=== PATIENT | female | born 1980 | race Caucasian/White ===

== ENCOUNTER 2016-12-16 14:44 | Emergency (ER) | payer BC ==
--- NOTE | 2016-12-16 15:10 | UC ---
UC General HPI - HPI Summary HPI Summary: Patient was ill for a few days with a temp of 101, she worked until the weekend , and then rested, work requesting she come in to be evaluated to make sure she is safe to return to work. was treated by the dentist for dental infection - History of Current Complaint Chief Complaint: UCGeneralIllness Stated Complaint: MOUTH COMPLAINT Time Seen by Provider: 12/16/16 15:00 Hx Obtained From: Patient Onset/Duration: Sudden Onset, Lasting Days Timing: Constant Onset Severity: Moderate Current Severity: Mild Pain Intensity: 2 Pain Location at: bottom jaw - Allergy/Home Medications Allergies/Adverse Reactions: Allergies Allergy/AdvReac Type Severity Reaction Status Date / Time No Known Allergies Allergy Verified 01/10/15 19:06 Home Medications: Home Medications Amoxicillin/Clavulanate TAB* [Augmentin TAB 875*] 12/16/16 [History] PMH/Surg Hx/FS Hx/Imm Hx Previously Healthy: Yes Endocrine History Of: Denies: Diabetes, Thyroid Disease Cardiovascular History Of: Denies: Cardiac Disorders, Hypertension Respiratory History Of: Denies: COPD, Asthma GI/ History Of: Denies: Ulcer - Surgical History Surgical History: Yes Surgery Procedure, Year, and Place: biopsy - Family History Known Family History: Positive: Respiratory Disease Negative: Hypertension - Social History Alcohol Use: Rare Alcohol Amount: beer Substance Use Type: None Smoking Status (MU): Never Smoked Tobacco - Immunization History Most Recent Tetanus Shot: believes it was last year Review of Systems Constitutional: Fatigue Skin: Negative Eyes: Negative ENT: Negative Respiratory: Negative Cardiovascular: Negative Gastrointestinal: Negative Genitourinary: Negative Motor: Negative Neurovascular: Negative Musculoskeletal: Negative Neurological: Negative Psychological: Negative All Other Systems Reviewed And Are Negative: Yes Physical Exam Triage Information Reviewed: Yes Appearance: Well-Appearing, No Pain Distress, Well-Nourished Vital Signs: Initial Vital Signs Temp 98.7 F 12/16/16 14:49 Pulse 87 12/16/16 14:49 Resp 18 12/16/16 14:49 BP 112/74 12/16/16 14:49 Pulse Ox 99 12/16/16 14:49 Vital Signs Reviewed: Yes Eye Exam: Normal Eyes: Positive: Conjunctiva Clear ENT: Positive: Hearing grossly normal, Pharynx normal, TM bulging - left Dental Exam: Normal Dental: Positive: Other: - gingiva inflammed Neck exam: Normal Neck: Positive: Supple, Nontender, No Lymphadenopathy Respiratory Exam: Normal Respiratory: Positive: Chest non-tender, Lungs clear, Normal breath sounds Cardiovascular Exam: Normal Cardiovascular: Positive: RRR, No Murmur, Pulses Normal Abdominal Exam: Normal Abdomen Description: Positive: Nontender, No Organomegaly, Soft Bowel Sounds: Positive: Present Musculoskeletal Exam: Normal Musculoskeletal: Positive: Strength Intact, ROM Intact, No Edema Neurological Exam: Normal Neurological: Positive: Alert, Muscle Tone Normal Psychological Exam: Normal Skin Exam: Normal Course/Dx - Course Course Of Treatment: hx obtained, exam performed, afebrile, is currently on medication from her dentist, does not appear to be an infection reisk to return to work. - Differential Dx - Multi-Symptom Provider Diagnoses: gingivitis. fatique Discharge - Discharge Plan Condition: Stable Disposition: HOME Forms: *Work Release Additional Instructions: Continue taking the medication your dentist has prescribed. Follow up with any worsening symptoms.
[2016-12-16 16:00] VITALS: BP 112/74
== END 2016-12-16 15:17 | disposition home or self-care (01) ==
LOC: UCEAST 14:44
DX: K05.10 Chronic gingivitis, plaque induced (principal); R53.83 Other fatigue
CPT/HCPCS: 99211; G0463

== ENCOUNTER 2017-10-08 17:10 | Emergency (ER) | payer BC ==
[2017-10-08 17:25] VITALS: BP 110/60
--- NOTE | 2017-10-08 17:38 | UC ---
Lower Extremity/Ankle HPI - HPI Summary HPI Summary: 37 yo female twisted her right ankle 4 days ago missed work able to bear wt with a limp - History of Current Complaint Chief Complaint: UCLowerExtremity Stated Complaint: ANKLE INJURY Time Seen by Provider: 10/08/17 17:27 Hx Obtained From: Patient Hx Last Menstrual Period: 09/30/17 Onset/Duration: Sudden Onset, Lasting Days Severity Initially: Moderate Severity Currently: Moderate Pain Intensity: 4 Pain Scale Used: 0-10 Numeric Aggravating Factor(s): Standing, Ambulation Alleviating Factor(s): Rest, Elevation Able to Bear Weight: Yes - Allergies/Home Medications Allergies/Adverse Reactions: Allergies Allergy/AdvReac Type Severity Reaction Status Date / Time No Known Allergies Allergy Verified 10/08/17 17:25 PMH/Surg Hx/FS Hx/Imm Hx Previously Healthy: Yes - Surgical History Surgical History: Yes Surgery Procedure, Year, and Place: biopsy - Family History Known Family History: Positive: Respiratory Disease Negative: Hypertension - Social History Alcohol Use: Occasionally Alcohol Amount: beer Substance Use Type: None Smoking Status (MU): Never Smoked Tobacco - Immunization History Most Recent Tetanus Shot: believes it was last year Review of Systems Constitutional: Negative Skin: Bruising Eyes: Negative ENT: Negative Respiratory: Negative Cardiovascular: Negative Gastrointestinal: Negative Genitourinary: Negative Motor: Negative Neurovascular: Negative Musculoskeletal: Arthralgia Neurological: Negative Psychological: Negative Is Patient Immunocompromised?: No All Other Systems Reviewed And Are Negative: Yes Physical Exam Triage Information Reviewed: Yes Appearance: Well-Appearing, No Pain Distress, Well-Nourished Vital Signs: Initial Vital Signs Temp 98.8 F 10/08/17 17:20 Pulse 88 10/08/17 17:20 Resp 18 10/08/17 17:20 BP 110/60 10/08/17 17:20 Pulse Ox 100 10/08/17 17:20 Eyes: Positive: Conjunctiva Clear ENT: Positive: Hearing grossly normal. Negative: Nasal congestion, Nasal drainage, Trismus, Muffled voice, Hoarse voice Neck: Positive: Supple, Nontender Respiratory: Positive: Lungs clear, Normal breath sounds, No respiratory distress, No accessory muscle use Cardiovascular: Positive: RRR, No Murmur Musculoskeletal: Positive: Other: - see image Neurological: Positive: Alert Psychological Exam: Normal Diagnostics - Radiology No standard instances Xray Interpretation: No Acute Changes Radiology Interpretation Completed By: Radiologist Lower Extremity Course/Dx - Differential Dx/Diagnosis Provider Diagnoses: right ankle sprain Discharge - Discharge Plan Condition: Stable Disposition: HOME Patient Education Materials: Ankle Sprain (ED), RICE Therapy (ED) Forms: *Work Release Referrals: No Primary Care Phys,NOPCP [Primary Care Provider] - Additional Instructions: recheck this Thursday if you don't think you can return to work on Thursday Images Feet (Multiple View): 1 - tender swollen 2 - swollen/ecchymotic
--- NOTE | 2017-10-08 18:07 | RAD ---
INDICATION: Right ankle injury. TECHNIQUE: 3 views of the right ankle were obtained. FINDINGS: The bones are in normal alignment. No fracture is seen. Joint spaces appear maintained. IMPRESSION: NO EVIDENCE FOR FRACTURE.
== END 2017-10-08 18:31 | disposition home or self-care (01) ==
LOC: UCEAST 17:10
DX: S93.401A Sprain of unspecified ligament of right ankle, initial encounter (principal); X50.9XXA Other and unspecified overexertion or strenuous movements or postures, initial encounter; Y92.9 Unspecified place or not applicable
CPT/HCPCS: 99212; G0463

== ENCOUNTER 2017-10-11 15:26 | Emergency (ER) | payer BC ==
[2017-10-11 16:41] VITALS: BP 111/69
--- NOTE | 2017-10-11 17:05 | UC ---
Lower Extremity/Ankle HPI - HPI Summary HPI Summary: seen a couple of days ago ---had a twisting injury to right foot / ankle has continued pain and feels that she is unable to do her job at [employer] this week do to the pain - History of Current Complaint Chief Complaint: UCLowerExtremity Stated Complaint: ANKLE INJURY RECHECK Time Seen by Provider: 10/11/17 16:52 Hx Obtained From: Patient Hx Last Menstrual Period: 09/30/17 ?: No Onset/Duration: Sudden Onset, Lasting Days, Still Present Severity Initially: Moderate Severity Currently: Moderate Pain Intensity: 6 Pain Scale Used: 0-10 Numeric Aggravating Factor(s): Standing, Ambulation Able to Bear Weight: Yes - with pain - Allergies/Home Medications Allergies/Adverse Reactions: Allergies Allergy/AdvReac Type Severity Reaction Status Date / Time No Known Allergies Allergy Verified 10/11/17 16:33 PMH/Surg Hx/FS Hx/Imm Hx Previously Healthy: Yes - Surgical History Surgical History: Yes Surgery Procedure, Year, and Place: biopsy - Family History Known Family History: Positive: Respiratory Disease Negative: Hypertension - Social History Occupation: Employed Full-time Lives: With Family Alcohol Use: Occasionally Alcohol Amount: beer Substance Use Type: None Smoking Status (MU): Never Smoked Tobacco - Immunization History Most Recent Tetanus Shot: believes it was last year Review of Systems Constitutional: Negative Skin: Negative Eyes: Negative ENT: Negative Respiratory: Negative Cardiovascular: Negative Gastrointestinal: Negative Genitourinary: Negative Motor: Negative Neurovascular: Negative Musculoskeletal: Arthralgia - lateral right ankle & top of lateral side of right foot Neurological: Negative Psychological: Negative Is Patient Immunocompromised?: No All Other Systems Reviewed And Are Negative: Yes Physical Exam Triage Information Reviewed: Yes Appearance: Well-Appearing, Well-Nourished, Pain Distress - mild Vital Signs: Initial Vital Signs Temp 99.5 F 10/11/17 16:33 Pulse 106 10/11/17 16:33 Resp 16 10/11/17 16:33 BP 111/69 10/11/17 16:33 Pulse Ox 98 10/11/17 16:33 Vital Signs Reviewed: Yes Eye Exam: Normal Eyes: Positive: Conjunctiva Clear ENT Exam: Normal ENT: Positive: Normal ENT inspection, Hearing grossly normal. Negative: Nasal congestion, Trismus, Muffled voice, Hoarse voice Dental Exam: Normal Neck exam: Normal Neck: Positive: Supple, Nontender Respiratory Exam: Normal Respiratory: Positive: Chest non-tender, No respiratory distress, No accessory muscle use Cardiovascular Exam: Normal Cardiovascular: Positive: RRR, Pulses Normal, Brisk Capillary Refill Musculoskeletal Exam: Normal Musculoskeletal: Positive: Strength Intact, ROM Intact, No Edema Neurological Exam: Normal Neurological: Positive: Alert, Muscle Tone Normal Psychological Exam: Normal Psychological: Positive: Normal Response To Family Skin Exam: Normal Lower Extremity Course/Dx - Course Course Of Treatment: cam boot rice ibuprofen follow with ortho this week - Differential Dx/Diagnosis Provider Diagnoses: right lateral ankle sprain foot contusion Discharge - Discharge Plan Condition: Stable Disposition: HOME Patient Education Materials: Foot Sprain (ED), RICE Therapy (ED) Forms: *Work Release Referrals: [facility] [Outside] Chucho Carias MD [Medical Doctor] - 3 Days ()
== END 2017-10-11 17:22 | disposition home or self-care (01) ==
LOC: UCEAST 15:26
DX: S90.31XD Contusion of right foot, subsequent encounter (principal); S93.401D Sprain of unspecified ligament of right ankle, subsequent encounter; X50.1XXD Overexertion from prolonged static or awkward postures, subsequent encounter; Y92.9 Unspecified place or not applicable
CPT/HCPCS: 99212; G0463

== ENCOUNTER → 2018-05-26 16:52 | Emergency (ER) | payer SELFPAY ==
[~2018-05-26 16:52] MED LIST: NS 0.9% 1000 ML* 1,000 ML IV ONE
--- NOTE | 2018-05-26 17:59 | RAD ---
INDICATION: Seizures COMPARISON: None TECHNIQUE: Noncontrast axial source images were acquired from the skull base to the vertex. FINDINGS: Ventricles/sulci: The ventricles and cisterns are normal in size and configuration for age. Brain parenchyma: There is no focal parenchymal finding, evidence of intracranial mass, or intracranial mass effect. Intracranial hemorrhage:None. Extra-axial spaces: There are no abnormal extra axial fluid collections or evidence of extra-axial mass. Calvarium: There is no calvarial fracture or other calvarial abnormality. Scalp: There is no evidence of scalp or extracalvarial soft tissue abnormality. Paranasal sinuses/mastoid: The paranasal sinuses and mastoid air cells are clear. Other: None. IMPRESSION: NEGATIVE NONCONTRAST CT EXAMINATION
--- NOTE | 2018-05-26 18:13 | RAD ---
INDICATION: Seizure COMPARISON: None TECHNIQUE: An AP portable view obtained at 1754 hours is submitted. FINDINGS: Bones/Soft Tissues: There are no acute bony findings. Cardiomediastinal: The cardiomediastinal silhouette is normal. Lungs: There are no infiltrates. Pleura: There are no pleural effusions. Other: None IMPRESSION: NO ACTIVE DISEASE.
[2018-05-26 18:23] LABS: ABS Basophils 0.1 10^3/ul (0-0.2); ABS Eosinophils 0 10^3/ul (0-0.6); ABS Lymphocytes 0.3 10^3/ul (1.0-4.8); ABS Monocytes 0.3 10^3/ul (0-0.8); ABS Neutrophils 7.8 10^3/ul (1.5-7.7); ABS Nucleated RBC 0 10^3/ul; Eosinophil % 0.3 % (0-6); Hematocrit 28 % (35-47); Hemoglobin 8.7 g/dl (12.0-16.0); Lymphocyte % 3.5 % (25-47); Mean Corpuscular HGB Conc 32 g/dl (31-36); Mean Corpuscular Hemoglobin 25 pg (27-31); Mean Corpuscular Volume 79 fL (80-97); Mean Platelet Volume 7.1 um3 (7.4-10.4); Nucleated Red Blood Cells % 0; Platelet Count 349 10^3/ul (150-450); Red Blood Count 3.47 10^6/ul (4.00-5.40); Red Cell Distribution Width 16 % (10.5-15); White Blood Count 8.5 10^3/ul (3.5-10.8)
[2018-05-26 18:42] LABS: EGFR Non-African American 68.8 (>60)
[2018-05-26 18:55] LABS: INR 0.91 (0.77-1.02)
--- NOTE | 2018-05-26 19:04 | ED ---
Osito Newman Tiffany, scribed for Flo Simmons on 05/26/18 at 1738 . Neurological HPI - HPI Summary HPI Summary: 38 year old F BIBDerrick to [facility] complains of one witnessed seizure at court 30 minutes ago that has since resolved. Symptoms aggravated by nothing. Symptoms alleviated by nothing. Patient reports insomnia last night and not feeling well today. She does not remember the seizure episode. No hx seizure. Fhx epilepsy. - History of Current Complaint Chief Complaint: EDSeizure Stated Complaint: SEIZURES Time Seen by Provider: 05/26/18 17:25 Hx Obtained From: Patient Hx Last Menstrual Period: 09/30/17 Onset/Duration: Started minutes ago - 30 minutes, Resolved Number of Seizures: 1 Aggravating: Nothing Alleviating: Nothing - Allergy/Home Medications Allergies/Adverse Reactions: Allergies Allergy/AdvReac Type Severity Reaction Status Date / Time No Known Allergies Allergy Verified 10/11/17 16:33 PMH/Surg Hx/FS Hx/Imm Hx Previously Healthy: No Endocrine/Hematology History: Denies: Hx Diabetes, Hx Thyroid Disease Cardiovascular History: Denies: Hx Hypertension Respiratory History: Denies: Hx Asthma, Hx Chronic Obstructive Pulmonary Disease (COPD) GI History: Denies: Hx Ulcer Psychiatric History: Reports: Hx Attention Deficit Hyperactivity Disorder - Cancer History Cancer Type, Location and Year: thyroid biopsy (benign) - Surgical History Surgery Procedure, Year, and Place: biopsy Infectious Disease History: No Infectious Disease History: Reports: Hx of Known/Suspected MRSA Denies: Hx Clostridium Difficile, Hx Hepatitis, Hx Human Immunodeficiency Virus (HIV), Hx Shingles, Hx Tuberculosis, Hx Known/Suspected VRE, Hx Known/ Suspected VRSA, History Other Infectious Disease, Traveled Outside the [place] in Last 30 Days - Family History Known Family History: Positive: Respiratory Disease, Other - brother has epilepsy Negative: Hypertension - Social History Alcohol Use: Occasionally Alcohol Amount: beer Hx Substance Use: No Substance Use Type: Reports: None Hx Tobacco Use: No Smoking Status (MU): Never Smoked Tobacco Review of Systems Positive: Other - not feeling well today Neurological: Other - one witnessed seizure that has since resolved, does not remember this episode Positive: Other - insomnia last night All Other Systems Reviewed And Are Negative: Yes Physical Exam - Summary Physical Exam Summary: Appearance: Well appearing, no pain distress Skin: warm, dry, reflects adequate perfusion Head/face: normal Eyes: EOMI, SON ENT: normal Neck: supple, non-tender Respiratory: CTA, breath sounds present Cardiovascular: RRR, pulses symmetrical Abdomen: non-tender, soft Bowel: present Musculoskeletal: normal, strength/ROM intact Neuro: normal, sensory motor intact, A&Ox3 Triage Information Reviewed: Yes Vital Signs On Initial Exam: Initial Vitals Temp Pulse Resp BP Pulse Ox 97.9 F 109 18 124/81 100 05/26/18 16:57 05/26/18 16:57 05/26/18 16:57 05/26/18 16:57 05/26/18 16:57 Vital Signs Reviewed: Yes Diagnostics - Vital Signs Vital Signs Temp Pulse Resp BP Pulse Ox 05/26/18 16:57 97.9 F 109 18 124/81 100 - Laboratory Lab Results: Lab Results 05/26/18 05/26/18 05/26/18 Range/Units 18:13 18:14 18:14 WBC 8.5 (3.5-10.8) 10^3/ul RBC 3.47 L (4.00-5.40) 10^6/ul Hgb 8.7 L (12.0-16.0) g/dl Hct 28 L (35-47) % MCV 79 L (80-97) fL MCH 25 L (27-31) pg MCHC 32 (31-36) g/dl RDW 16 H (10.5-15) % Plt Count 349 (150-450) 10^3/ul MPV 7.1 L (7.4-10.4) um3 Neut % (Auto) 92.2 H (38-83) % Lymph % (Auto) 3.5 L (25-47) % Stevens % (Auto) 3.2 (0-7) % Eos % (Auto) 0.3 (0-6) % Baso % (Auto) 0.8 (0-2) % Absolute Neuts (auto) 7.8 H (1.5-7.7) 10^3/ul Absolute Lymphs (auto) 0.3 L (1.0-4.8) 10^3/ul Absolute Monos (auto) 0.3 (0-0.8) 10^3/ul Absolute Eos (auto) 0 (0-0.6) 10^3/ul Absolute Basos (auto) 0.1 (0-0.2) 10^3/ul Absolute Nucleated RBC 0 10^3/ul Nucleated RBC % 0 INR (Anticoag Therapy) 0.91 (0.77-1.02) APTT 24.1 L (26.0-36.3) seconds Sodium 136 (135-145) mmol/L Potassium 3.5 (3.5-5.0) mmol/L Chloride 105 (101-111) mmol/L Carbon Dioxide 21 L (22-32) mmol/L Anion Gap 10 (2-11) mmol/L BUN 10 (6-24) mg/dL Creatinine 0.91 (0.51-0.95) mg/dL Est GFR ( Amer) 83.3 (>60) Est GFR (Non-Af Amer) 68.8 (>60) BUN/Creatinine Ratio 11.0 (8-20) Glucose 93 (70-100) mg/dL Calcium 9.2 (8.6-10.3) mg/dL Magnesium 2.2 (1.9-2.7) mg/dL Total Bilirubin 0.30 (0.2-1.0) mg/dL AST 21 (13-39) U/L ALT 12 (7-52) U/L Alkaline Phosphatase 44 (34-104) U/L Total Creatine Kinase 85 (10-223) U/L Troponin I 0.00 (<0.04) ng/mL Total Protein 7.6 (6.4-8.9) g/dL Albumin 4.3 (3.2-5.2) g/dL Globulin 3.3 (2-4) g/dL Albumin/Globulin Ratio 1.3 (1-3) Beta HCG, Quant < 0.60 mIU/mL Serum Alcohol Pending Result Diagrams: 05/26/18 18:14 05/26/18 18:14 Lab Statement: Any lab studies that have been ordered have been reviewed, and results considered in the medical decision making process. - Radiology CXR Radiology Interpretation Completed By: Radiologist - No active disease. ED physician has reviewed this report. - CT Brain CT Interpretation Completed By: Radiologist - NEGATIVE NONCONTRAST CT EXAMINATION. ED physician has reviewed this report. - EKG 17:37 Cardiac Rate: Tachycardia - 106 BPM EKG Rhythm: Sinus Tachycardia EKG Interpretation: No acute changes Re-Evaluation - Re-Evaluation First Eval Re-Evaluation Time: 18:24 Comment: Discussed consultation with Dr. Iverson. She knows that she cannot drive until follow up from neurology. Course/Dx - Course Course Of Treatment: 38 year old F BIBDerrick to [facility] complains of one witnessed seizure at court 30 minutes ago that has since resolved. Bloodwork/UA/imaging obtained. All were negative. Patient will be discharged leobardo with follow up from neurology. She was advised not to drive until follow up. - Differential Dx Differential Diagnoses Neuro: Positive: Seizure Disorder, Vasovagal Reaction - Diagnoses Provider Diagnoses: New onset seizure, Anemia - Physician Notifications Discussed Care Of Patient With: Tyrell Iverson Time Discussed With Above Provider: 18:20 Instructed by Provider To: Other - Dr. Iverson, neurology, advises that patient can be discharged home with follow-up from neurology if labs and imaging are negative. He says patient should get an out-patient EEG and advises that patient should not drive until she follows up with neurology. Discharge - Sign-Out/Discharge Documenting (check all that apply): Discharge/Admit/Transfer - Discharge - Discharge Plan Condition: Stable Disposition: HOME Prescriptions: Ferrous Sulfate [Ferosul] 325 mg PO BID #60 tablet Patient Education Materials: New-Onset Seizure in Adults (ED) Forms: *Work Release Referrals: No Primary Care Phys,NOPCP [Primary Care Provider] - Dahlia Villalpando MD [Medical Doctor] - As Soon As Possible Additional Instructions: Follow up with Dr. Villalpando, neurology, as soon as possible. DO NOT DRIVE UNTIL YOU HAVE FOLLOWED UP. Return to the Emergency Department for new or worsening symptoms. - Billing Disposition and Condition Condition: STABLE Disposition: Home The documentation as recorded by the Osito mcwilliams Tiffany accurately reflects the service I personally performed and the decisions made by , Flo Simmons.
[2018-05-26 21:32] VITALS: BP 135/80
== END | disposition home or self-care (01) ==
LOC: ED 16:52
DX: D64.9 Anemia, unspecified (principal); R56.9 Unspecified convulsions; G47.00 Insomnia, unspecified; Z82.0 Family history of epilepsy and other diseases of the nervous system
CPT/HCPCS: 36415; 70450; 71045; 80053; 80320; 82550; 83735; 84484; 84702; 85025; 85610; 85730; 93005; 99283; G0480

== ENCOUNTER 2019-03-14 16:19 | Emergency (ER) | payer SELFPAY ==
--- NOTE | 2019-03-14 17:07 | ED ---
Substance Abuse/Use - HPI Summary HPI Summary: Pt is a 39 y/o female brought in by police who presents to the ED c/o intoxication. She is intoxicated by alcohol and got into an argument with her at home. Pt has been for 3 weeks and today he threatened to divorce her. As per nurses note, she states I guess I said I wanted to hurt myself. Pt denies any current SI or HI. She repeats that she doesnt know why shes here. Pt reports that she hasnt eaten in the past 2 days. She was drinking beer today, and denies any drug use or smoking. PMHx ADD and depression. Pt is prescribed Adderall and Lexapro but doesnt take her medications. - History Of Current Complaint Chief Complaint: EDMentalHealth Stated Complaint: 941 MHE PER POLICE Time Seen by Provider: 03/14/19 16:38 Hx Obtained From: Patient Hx Last Menstrual Period: 09/30/17 Ingestion History: Type/Name Of Drug - Alcohol Overdose Characteristics: Oral Aggravating Factor(s): Recent Stress - fight with Alleviating Factor(s): Nothing - Allergies/Home Medications Allergies/Adverse Reactions: Allergies Allergy/AdvReac Type Severity Reaction Status Date / Time No Known Allergies Allergy Verified 03/14/19 17:30 Home Medications: Home Medications NK [No Home Medications Reported] 03/14/19 [History Confirmed 03/14/19] PMH/Surg Hx/FS Hx/Imm Hx Endocrine/Hematology History: Denies: Hx Diabetes, Hx Thyroid Disease Cardiovascular History: Denies: Hx Hypertension Respiratory History: Denies: Hx Asthma, Hx Chronic Obstructive Pulmonary Disease (COPD) GI History: Denies: Hx Ulcer Psychiatric History: Reports: Hx Attention Deficit Hyperactivity Disorder, Hx Depression - Cancer History Cancer Type, Location and Year: thyroid biopsy (benign) - Surgical History Surgery Procedure, Year, and Place: biopsy Infectious Disease History: No Infectious Disease History: Reports: Hx of Known/Suspected MRSA Denies: Hx Clostridium Difficile, Hx Hepatitis, Hx Human Immunodeficiency Virus (HIV), Hx Shingles, Hx Tuberculosis, Hx Known/Suspected VRE, Hx Known/ Suspected VRSA, History Other Infectious Disease, Traveled Outside the [place] in Last 30 Days - Family History Known Family History: Positive: Respiratory Disease, Other - brother has epilepsy Negative: Hypertension - Social History Alcohol Use: Occasionally Alcohol Amount: beer Hx Substance Use: No Substance Use Type: Reports: None Hx Tobacco Use: No Smoking Status (MU): Never Smoked Tobacco Review of Systems Positive: Other - intoxicated Negative: Other - SI, HI All Other Systems Reviewed And Are Negative: Yes Physical Exam - Summary Physical Exam Summary: Appearance: well appearing, no pain distress, smells of alcohol Skin: warm, dry, reflects adequate perfusion Head/face: normal Eyes: EOMI, SON ENT: mucous membranes moist Neck: supple, non-tender Respiratory: CTA, breath sounds present Cardiovascular: RRR, pulses symmetrical Abdomen: non-tender, soft Bowel Sounds: present Musculoskeletal: normal, strength/ROM intact Neuro: normal, sensory motor intact, A&Ox3 Psych: mildly flattened affect Triage Information Reviewed: Yes Vital Signs On Initial Exam: Initial Vitals Temp Pulse Resp BP Pulse Ox 98.6 F 101 18 131/91 98 03/14/19 16:28 03/14/19 16:28 03/14/19 16:28 03/14/19 16:28 03/14/19 16:28 Vital Signs Reviewed: Yes Diagnostics - Vital Signs Vital Signs Temp Pulse Resp BP Pulse Ox 03/14/19 16:28 98.6 F 101 18 131/91 98 - Laboratory Result Diagrams: 03/14/19 17:02 03/14/19 17:02 Lab Statement: Any lab studies that have been ordered have been reviewed, and results considered in the medical decision making process. Course/Dx - Course Course Of Treatment: Nurse's notes reviewed. Patient intoxicated on beer on her birthday. She had made a suicidal statement at home but has no persistent suicidal ideation. She'll be observed until sober and reevaluated for need for mental health. She is signed out to oncoming ER physician. - Diagnoses Provider Diagnoses: Alcohol intoxication, Substance induced mood disorder Discharge - Sign-Out/Discharge Documenting (check all that apply): Sign-Out Patient Signing out patient TO: Tiffany Ang Patient Received Moderate/Deep Sedation with Procedure: No - Discharge Plan Referrals: No Primary Care Phys,NOPCP [Primary Care Provider] - - Attestation Statements Document Initiated by Scribe: Yes Documenting Scribe: Shala Reynolds Provider For Whom Scribe is Documenting (Include Credential): Albert Vidales MD Scribe Attestation: Shala Newman, scribed for Albert Vidales MD on 03/14/19 at 1833. Scribe Documentation Reviewed: Yes Provider Attestation: The documentation as recorded by the scribe, Shala Reynolds accurately reflects the service I personally performed and the decisions made by me, Albert Vidales MD Status of Scribe Document: Viewed
[2019-03-14 17:12] LABS: ABS Basophils 0 10^3/ul (0-0.2); ABS Eosinophils 0 10^3/ul (0-0.6); ABS Lymphocytes 0.8 10^3/ul (1.0-4.8); ABS Monocytes 0.2 10^3/ul (0-0.8); ABS Neutrophils 2.1 10^3/ul (1.5-7.7); ABS Nucleated RBC 0 10^3/ul; Eosinophil % 1.4 %; Hematocrit 38 % (33-41); Hemoglobin 12.6 g/dL (12.0-16.0); Lymphocyte % 24.7 %; Mean Corpuscular HGB Conc 33 g/dL (31-36); Mean Corpuscular Hemoglobin 28 pg (27-31); Mean Corpuscular Volume 84 fL (80-97); Mean Platelet Volume 6.8 fL (7.4-10.4); Nucleated Red Blood Cells % 0; Platelet Count 278 10^3/uL (150-450); Red Blood Count 4.54 10^6 /uL (3.70-4.87); Red Cell Distribution Width 17 % (10.5-15); White Blood Count 3.3 10^3/uL (3.5-10.8)
[2019-03-14 17:26] LABS: ALT 15 U/L (7-52); AST 27 U/L (13-39); Albumin 4.5 g/dL (3.2-5.2); Albumin/Globulin Ratio 1.4 (1-3); Alkaline Phosphatase 58 U/L (34-104); Anion Gap 7 mmol/L (2-11); BUN/Creatinine Ratio 10.6 (8-20); Blood Urea Nitrogen 10 mg/dL (6-24); CO2 Carbon Dioxide 23 mmol/L (22-32); Calcium 8.7 mg/dL (8.6-10.3); Chloride 110 mmol/L (101-111); EGFR African American 79.8 (>60); Globulin 3.2 g/dL (2-4); Glucose 93 mg/dL (70-100); Potassium 3.8 mmol/L (3.5-5.0); Sodium 140 mmol/L (135-145); Total Protein 7.7 g/dL (6.4-8.9)
[2019-03-14 17:30] LABS: Acetaminophen < 15 mcg/mL; Alcohol 349 mg/dL (<10); Salicylate < 2.50 mg/dL (<30)
[2019-03-14 17:31] LABS: HCG Pregnancy < 0.60 mIU/mL
[2019-03-14 17:38] LABS: Urine Appearance Clear; Urine Bacteria Absent (Absent); Urine Bilirubin Negative (Negative); Urine Blood 2+ (Negative); Urine Color Colorless; Urine Glucose Negative (Negative); Urine Ketones Negative (Negative); Urine Nitrite Negative (Negative); Urine Protein Negative (Negative); Urine Red Blood Cell Trace(0-2/hpf) (Absent); Urine Specific Gravity 1.002 (1.010-1.030); Urine Urobilinogen Negative (Negative); Urine White Blood Cell Absent (Absent)
[2019-03-14 17:39] LABS: Barbiturates Urine Screen None Detected (None Detect); Benzodiazepine Urine Screen None Detected (None Detect); Urine Cannabinoids Screen None Detected (None Detect)
--- NOTE | 2019-03-14 19:04 | ED ---
Progress - Progress Note Progress Note: Patient is received as a sign out from Dr. Vidales to Dr. Ang at 1900 03/14/19 shift change pending sobriety of patient, possible MHE. 2145 - Patient has sobered up at this point. Patient denies HI/SI at this time, she states that she feels safe to go back home with her . Patient will be discharged to home. Re-Evaluation - Re-Evaluation First Eval Re-Evaluation Time: 21:46 Change: Improved Comment: 2145 - Patient has sobered up at this point. Patient denies HI/SI at this time, she states that she feels safe to go back home with her . Patient will be discharged to home. Course/Dx - Course Course Of Treatment: Patient is received as a sign out from Dr. Vidales to Dr. Ang at 1900 03/14/19 shift change pending sobriety of patient, possible MHE. 2145 - Patient has sobered up at this point. Patient denies HI/SI at this time, she states that she feels safe to go back home with her . Patient will be discharged to home. - Diagnoses Provider Diagnoses: Alcohol intoxication Discharge - Sign-Out/Discharge Documenting (check all that apply): Patient Departure - discharge Patient Received Moderate/Deep Sedation with Procedure: No - Discharge Plan Condition: Stable Disposition: HOME Patient Education Materials: Alcohol Intoxication (ED) Referrals: [facility] [Outside] - 3 Days Additional Instructions: PLEASE RETURN TO THE EMERGENCY DEPARTMENT IMMEDIATELY FOR WORSENING OR CONCERNING SYMPTOMS. FOLLOW UP WITH YOUR PRIMARY CARE PHYSICIAN WITHIN THREE DAYS. - Attestation Statements Document Initiated by Scribe: Yes Documenting Scribe: CL ELDRIDGE Provider For Whom Cece is Documenting (Include Credential): GRACIA ANG MD Scribe Attestation: CL Newman, scribed for GRACIA ANG MD on 03/14/19 at 2149. Status of Scribe Document: Ready
[2019-03-14] MEDS ORDERED: Acetaminophen TAB* 325 MG PO ONE (21:45)
[2019-03-14 22:29] VITALS: BP 125/79
== END 2019-03-14 22:20 | disposition home or self-care (01) ==
LOC: ED 16:19
DX: F10.129 Alcohol abuse with intoxication, unspecified (principal); F98.8 Other specified behavioral and emotional disorders with onset usually occurring in childhood and adolescence; F19.94 Other psychoactive substance use, unspecified with psychoactive substance-induced mood disorder; F32.9 Major depressive disorder, single episode, unspecified; Z86.14 Personal history of Methicillin resistant Staphylococcus aureus infection; Z91.19 Patient's noncompliance with other medical treatment and regimen
CPT/HCPCS: 36415; 80053; 80307; 80320; 80329; 81003; 81015; 84702; 85025; 99285; G0480

== ENCOUNTER 2021-07-18 21:27 | Inpatient (IN) ==
[2021-07-19 06:22] LABS: ABS Lymphocytes 0.7 10^3/ul (1.0-4.8); ABS Monocytes 0.8 10^3/ul (0-0.8); ABS Neutrophils 7.5 10^3/ul (1.5-7.7); Eosinophil % 0.1 %; Hematocrit 43 % (35-47); Hemoglobin 14.7 g/dL (12.0-16.0); Lymphocyte % 7.7 %; Mean Corpuscular HGB Conc 34 g/dL (31-36); Mean Corpuscular Hemoglobin 33 pg (27-31); Mean Corpuscular Volume 96 fL (80-97); Platelet Count 351 10^3/uL (150-450); Red Blood Count 4.51 10^6 /uL (3.70-4.87); Red Cell Distribution Width 18 % (10-15)
[2021-07-19 06:38] LABS: ALT 33 U/L (7-52); AST 28 U/L (13-39); Albumin 4.5 g/dL (3.2-5.2); Albumin/Globulin Ratio 1.3 (1-3); Alkaline Phosphatase 112 U/L (35-149); Anion Gap 9 mmol/L (2-11); Blood Urea Nitrogen 11 mg/dL (6-24); CO2 Carbon Dioxide 24 mmol/L (22-32); Calcium 9.6 mg/dL (8.6-10.3); Chloride 103 mmol/L (101-111); EGFR African American 69.5 (>60); EGFR Non-African American 57.5 (>60); Globulin 3.5 g/dL (2-4); Glucose 127 mg/dL (70-100); Potassium 3.4 mmol/L (3.5-5.0); Sodium 136 mmol/L (135-145)
[2021-07-19 06:49] LABS: Acetaminophen < 15 mcg/mL; Alcohol, S < 13 mg/dL (<13); Salicylate < 2.50 mg/dL (<30)
[2021-07-19 07:04] LABS: TSH Ultra Thyroid Stim Horm 6.78 mcIU/mL (0.34-5.60)
[2021-07-19] MEDS ORDERED: Al Hydrox/Mg Hydrox/Simet LIQ 30 ML UDC PO PRN (11:47)
[2021-07-20] MEDS: Vitamin THERAPEUTIC TAB PO SCH (09:33)
[2021-07-21 08:36] LABS: HDL Cholesterol 56.1 mg/dL
[2021-07-21] MEDS: Vitamin THERAPEUTIC TAB PO SCH (09:10)
[2021-07-22] MEDS: Vitamin THERAPEUTIC TAB PO SCH (10:01)
[2021-07-23] MEDS: Vitamin THERAPEUTIC TAB PO SCH (07:41)
[2021-07-23 08:13] VITALS: BP 134/84
== END 2021-07-23 14:00 | disposition home or self-care (01) | DRG 751 ==
LOC: ED 21:27 → BSU 07-19 11:56
PROVIDERS: ADMIT Psychiatry & Neurology Psychiatry; ATTEND Psychiatry & Neurology Psychiatry

== ENCOUNTER 2022-08-06 18:53 | Inpatient (IN) ==
[2022-08-06] MEDS ORDERED: Lactated Ringers 1000 ml BAG 1,000 ML IV ONE ×2 (19:14→21:28)
[2022-08-06 20:27] LABS: ABS Lymphocytes 0.8 10^3/ul (1.0-4.8); ABS Monocytes 1.3 10^3/ul (0-0.8); ABS Neutrophils 12.2 10^3/ul (1.5-7.7); Hematocrit 51 % (35-47); Hemoglobin 17.1 g/dL (12.0-16.0); Lymphocyte % 5.8 %; Mean Corpuscular HGB Conc 34 g/dL (31-36); Mean Corpuscular Hemoglobin 32 pg (27-31); Mean Corpuscular Volume 96 fL (80-97); Mean Platelet Volume 7.9 fL (7.4-10.4); Platelet Count 373 10^3/uL (150-450); Red Blood Count 5.32 10^6 /uL (3.70-4.87); Red Cell Distribution Width 14 % (10-15); White Blood Count 14.4 10^3/uL (3.5-10.8)
[2022-08-06 21:16] LABS: ALT 33 U/L (7-52); AST 33 U/L (13-39); Albumin 5.1 g/dL (3.2-5.2); Albumin/Globulin Ratio 1.5 (1-3); Alcohol, S < 13 mg/dL (<13); Alkaline Phosphatase 102 U/L (35-149); Anion Gap 12 mmol/L (2-11); Blood Urea Nitrogen 11 mg/dL (6-24); CO2 Carbon Dioxide 17 mmol/L (22-32); Calcium 11.1 mg/dL (8.6-10.3); Chloride 108 mmol/L (101-111); Globulin 3.5 g/dL (2-4); Glucose 154 mg/dL (70-100); Potassium 4.1 mmol/L (3.5-5.0); Salicylate < 2.50 mg/dL (<30); Sodium 137 mmol/L (135-145); Total Protein 8.6 g/dL (6.4-8.9); eGFR CKD-EPI 51.4 (>60)
[2022-08-06 21:18] LABS: Acetaminophen < 15 mcg/mL
[2022-08-06 21:31] LABS: TSH Ultra Thyroid Stim Horm 5.56 mcIU/mL (0.34-5.60)
[2022-08-07 00:01] LABS: High Sensitivity Troponin 1 Hr 8 pg/mL (<15)
[2022-08-07] MEDS ORDERED: Lactated Ringers 1000 ml BAG 1,000 ML IV ONE ×2 (04:15→05:52)
[2022-08-07 06:18] LABS: Urine Benzodiazepine Screen Presumptive Positive (None Detect); Urine Cannabinoids Screen None Detected (None Detect); Urine Opiates Screen None Detected (None Detect)
[2022-08-07 06:31] LABS: Urine Appearance Turbid; Urine Blood Trace (Intact) (Negative); Urine Color Yellow; Urine Glucose Negative (Negative); Urine Ketones 3+ (80mg/dL) (Negative); Urine Nitrite Negative (Negative); Urine Protein 2+ (100 mg/dL) (Negative); Urine Specific Gravity 1.028 (1.002-1.030); Urine Urobilinogen 0.2 (Negative) (Negative); Urine pH 5.5 (5.0-9.0)
[2022-08-07 07:12] LABS: Urine Bacteria Absent (Absent); Urine Red Blood Cell Absent (Absent); Urine White Blood Cell Absent (Absent)
[2022-08-07] MEDS ORDERED: Al Hydrox/Mg Hydrox/Simet LIQ 30 ML UDC PO PRN (14:20)
[2022-08-08 08:16] LABS: HDL Cholesterol 39.6 mg/dL
[2022-08-11 07:46] VITALS: BP 137/89
== END 2022-08-11 13:21 | disposition home or self-care (01) | DRG 751 ==
LOC: ED 18:53 → EDHOLD 08-07 14:20 → BSU 08-07 14:50
PROVIDERS: ADMIT Psychiatry & Neurology Psychiatry; ATTEND Psychiatry & Neurology Psychiatry